=== PATIENT | male | born 1955 | race Caucasian/White ===

== ENCOUNTER 2020-02-16 08:24 | Day surgery (SDC) | payer OTHER ==
[~2020-02-16] VITALS: Ht 177.8 cm; Wt 84.5 kg
[~2020-02-16 08:24] MED LIST: HERBS PO; MULT-658 PO; OMEG-76 PO; vitamin c PO; xarelto PO
[2020-02-16] MEDS ORDERED: LACTATED RINGERS 1,000 ML IV SCH (08:48)
[2020-02-16 08:55] VITALS: BP 109/72
[2020-02-16] MEDS ORDERED: CHLORHEXIDINE 15 ML UDC MM ONE (09:00)
[2020-02-16 09:29] LABS: ALANINE AMINOTRANSFERASE 40 U/L (12-78); ALBUMIN 3.7 g/dL (3.4-5.0); ANION GAP 7 mmol/L (5-15); CALCIUM 9.2 mg/dL (8.5-10.1); CHLORIDE 115 mmol/L (98-107); CREATININE 1.13 mg/dL (0.7-1.3)
[2020-02-16 09:31] LABS: ALKALINE PHOSPHATASE 90 U/L (45-117); BILIRUBIN,TOTAL 1.5 mg/dL (0.2-1.0); TOTAL PROTEIN 7.3 g/dL (6.4-8.2)
[2020-02-16] MEDS ORDERED: ALBUTEROL SULFATE 2.5 MG/3 ML NPPB PRN (11:30)
[2020-02-16] MEDS ORDERED: PROPOFOL 10 MG/ML, 20ML ONE (11:35)
[2020-02-16] MEDS ORDERED: SUCCINYLCHOLINE 20 MG/ML, 10ML ONE (11:36)
[2020-02-16] MEDS ORDERED: METOPROLOL 1 MG/ML, 5ML ONE (11:36)
== END 2020-02-16 13:20 | disposition home or self-care (01) ==
LOC: OUT 08:24
PROVIDERS: ATTEND Internal Medicine Gastroenterology
DX: C15.5 Malignant neoplasm of lower third of esophagus (principal); K21.9 Gastro-esophageal reflux disease without esophagitis; K29.50 Unspecified chronic gastritis without bleeding; K22.8 Other specified diseases of esophagus; Z79.899 Other long term (current) drug therapy; Z72.89 Other problems related to lifestyle; Z87.891 Personal history of nicotine dependence; Z98.890 Other specified postprocedural states; Z79.01 Long term (current) use of anticoagulants
CPT/HCPCS: 43237; 43239; 43248; 80053; 82962; 88305; 93005; J0330; J2704; J7120

== ENCOUNTER → 2020-09-14 | Day surgery (SDC) | payer MEDICARE, OTHER | END | disposition home or self-care (01) | LOC: OUT 07:45 | PROVIDERS: ATTEND Internal Medicine Gastroenterology | DX: Z02.9 Encounter for administrative examinations, unspecified (principal) ==

== ENCOUNTER 2020-10-02 10:42 | Day surgery (SDC) | payer MEDICARE ==
[~2020-10-02] VITALS: Ht 177.8 cm; Wt 52.1 kg
[~2020-10-02 10:42] MED LIST changes: +DEXAMETHASONE 4 MG/ML, 1ML ONE; +METOPROLOL 1 MG/ML, 5ML ONE; +ONDANSETRON 2MG/ML, 2ML ONE; +PHENYLEPHRINE 10 MG/ML ONE; +PROPOFOL 10 MG/ML, 20ML ONE; +ROCURONIUM 10MG/ML,5ML ONE; +SUCCINYLCHOLINE 20 MG/ML, 10ML ONE
[2020-10-02] MEDS ORDERED: CHLORHEXIDINE 15 ML UDC ONE (11:24)
[2020-10-02] MEDS ORDERED: CHLORHEXIDINE 15 ML UDC MM ONE (11:30)
[2020-10-02] MEDS ORDERED: LACTATED RINGERS 1,000 ML IV SCH (11:30)
[2020-10-02 11:46] VITALS: BP 93/64
[2020-10-02] MEDS ORDERED: OMNIPAQUE 350 MG/ML, 50 ML BOTTLE ONE (12:30)
[2020-10-02] MEDS ORDERED: METOPROLOL 1 MG/ML, 5ML ONE (13:06)
[2020-10-02] MEDS: METOPROLOL 1 MG/ML, 5ML IV PRN ×2 (13:11→13:18)
[2020-10-02] MEDS ORDERED: PROMETHAZINE 25 MG/ML, 1ML ONE (13:15)
[2020-10-02] MEDS ORDERED: FENTANYL PF 100 MCG/2ML ONE (13:15)
[2020-10-02] MEDS: FENTANYL PF 100 MCG/2ML IV PRN ×3 (13:21→13:54)
[2020-10-02] MEDS ORDERED: LABETALOL 5MG/ML, 20ML IV PRN (13:30)
[2020-10-02] MEDS ORDERED: MEPERIDINE/PF 25MG/0.5ML IVPush PRN (13:30)
[2020-10-02] MEDS ORDERED: PROMETHAZINE 12.5 MG SUPP PR PRN (13:30)
[2020-10-02] MEDS ORDERED: DIPHENHYDRAMINE 50 MG/ML, 1ML IVPush PRN (13:30)
[2020-10-02] MEDS ORDERED: OXYcodone 5 MG/5 ML ORAL.SOL UDC PO PRN (13:30)
[2020-10-02] MEDS ORDERED: MIDAZOLAM 1 MG/ML, 2ML IV PRN (13:30)
[2020-10-02] MEDS ORDERED: ALBUTEROL SULFATE 2.5 MG/3 ML NPPB PRN (13:30)
[2020-10-02] MEDS ORDERED: PROMETHAZINE 25 MG/ML, 1ML IVPush PRN (13:30)
[2020-10-02] MEDS ORDERED: DIAZEPAM 5 MG/ML, 2ML IVPush PRN (13:30)
[2020-10-02] MEDS ORDERED: HYDROmorphone 1 MG/ML, 1ML INJ IVPush PRN (13:30)
[2020-10-02] MEDS ORDERED: ONDANSETRON 2MG/ML, 2ML IVPush PRN (13:30)
[2020-10-02] MEDS ORDERED: EPHEDRINE 50 MG/ML, 1ML IVPush PRN (13:30)
[2020-10-02] MEDS ORDERED: hydrALAzine 20 MG/ML, 1ML IV PRN (13:30)
== END 2020-10-02 15:50 | disposition home or self-care (01) ==
LOC: OUT 10:42
PROVIDERS: ATTEND Internal Medicine Gastroenterology
DX: C15.9 Malignant neoplasm of esophagus, unspecified (principal); K22.2 Esophageal obstruction; K21.9 Gastro-esophageal reflux disease without esophagitis; I48.91 Unspecified atrial fibrillation; J45.909 Unspecified asthma, uncomplicated; Z79.899 Other long term (current) drug therapy; Z87.891 Personal history of nicotine dependence
CPT/HCPCS: 43239; 43266; 74360; 87635; 88305; 93005; C1725; C1769; C1874; J0330; J1100; J2370; J2405; J2550; J2704; J3010; J7120; Q9967; 74328; 76000